=== PATIENT | female | born 2000 | race Caucasian/White ===

== ENCOUNTER 2023-04-17 08:05 | Emergency (ER) | payer BC, SELFPAY ==
--- NOTE | ~2023-04-17 | US_ITS ---
EXAMINATION: US PELVIS CLINICAL INFORMATION: Pain, right greater than left. COMPARISON: None available. TECHNIQUE: Ultrasound of the pelvis is performed using both transabdominal and transvaginal transducers along with Doppler. Transvaginal imaging is performed due to inadequate visualization transabdominally. FINDINGS: Uterus: Anteverted and mildly retroflexed measuring approximately 7.3 x 4.1 x 4.3 cm. The endometrium demonstrates homogeneous echotexture and measures up to 1.2 cm at the level the fundus. Mild anechoic fluid within the endometrial canal at the level the mid to inferior body without surrounding abnormality. The cervix is closed measuring approximately 1.5 cm in length. Mild to moderate pelvic free fluid. Right ovary measures 2.2 x 1.8 x 2.3 cm. Volume 4.8 mL. Small follicles. Duplex Doppler showed no abnormal vascular flow. Left ovary measures 4.2 x 3.8 x 3.6 cm. Volume 3.0 mL. Complex cystic lesion measuring approximately 3.3 x 3.2 x 3.3 cm. Color Doppler showed no internal vascular flow. Duplex Doppler showed normal ovarian flow. US/US pelvic ovarian doppler IMPRESSION: 1. No significant uterine abnormality. Mild anechoic fluid within the endometrial canal is nonspecific, but demonstrates benign features. 2. Complex left ovarian cyst demonstrates overall benign features and is likely physiologic. Mild to moderate pelvic free fluid is likely physiologic as well. If these findings persist or enlarge, short-term repeat pelvic ultrasound can be performed as clinically indicated to assess for change, but recommendation is within 3 months.
--- NOTE | ~2023-04-17 | US_ITS ---
EXAMINATION: US PELVIS CLINICAL INFORMATION: Pain, right greater than left. COMPARISON: None available. TECHNIQUE: Ultrasound of the pelvis is performed using both transabdominal and transvaginal transducers along with Doppler. Transvaginal imaging is performed due to inadequate visualization transabdominally. FINDINGS: Uterus: Anteverted and mildly retroflexed measuring approximately 7.3 x 4.1 x 4.3 cm. The endometrium demonstrates homogeneous echotexture and measures up to 1.2 cm at the level the fundus. Mild anechoic fluid within the endometrial canal at the level the mid to inferior body without surrounding abnormality. The cervix is closed measuring approximately 1.5 cm in length. Mild to moderate pelvic free fluid. Right ovary measures 2.2 x 1.8 x 2.3 cm. Volume 4.8 mL. Small follicles. Duplex Doppler showed no abnormal vascular flow. Left ovary measures 4.2 x 3.8 x 3.6 cm. Volume 3.0 mL. Complex cystic lesion measuring approximately 3.3 x 3.2 x 3.3 cm. Color Doppler showed no internal vascular flow. Duplex Doppler showed normal ovarian flow. US/US pelvic and transvaginal IMPRESSION: 1. No significant uterine abnormality. Mild anechoic fluid within the endometrial canal is nonspecific, but demonstrates benign features. 2. Complex left ovarian cyst demonstrates overall benign features and is likely physiologic. Mild to moderate pelvic free fluid is likely physiologic as well. If these findings persist or enlarge, short-term repeat pelvic ultrasound can be performed as clinically indicated to assess for change, but recommendation is within 3 months.
[2023-04-17 08:19] VITALS: BP 115/57; PULSE 68; RESP 18; TEMP 37.1; O2SAT 99; BMI 22.9
[2023-04-17 08:41] VITALS: BP 108/54; PULSE 65; RESP 16; TEMP 37; O2SAT 99
--- NOTE | 2023-04-17 08:49 | PC.NURSE ---
assumed care of this pt at 0830. pt is a&o x4, pleasant, calm, and cooperative. pt reports RLQ pain that started about a week and a half ago. per pt, pain initially radiated across whole lower abdomen and lower back but radiation has since subsided and is not only in the RLQ and a 4/10 pain that worsens with stretching and a full bladder. pt also reports urinary frequency and urgency. pt has been to urgent care 2x and was told to come to ER for ultrasound for possibility of ovarian cysts. pt mother at bedside. pt is resting quietly on stretcher, in no apparent distress. rr even/unlabored. vss. wctm
--- NOTE | 2023-04-17 09:02 | ED.FEMALEGU ---
HPI - Female Genitourinary General Chief complaint: Urogenital-Female Stated complaint: quest cyst Time Seen by Provider: 04/17/23 08:54 Source: patient and family Mode of arrival: ambulatory Limitations: no limitations History of Present Illness HPI Narrative: 23-year-old female with no medical history presents to the ER for evaluation of pelvic pain for last week and a half. She states she has been to the urgent care 2 times this week for the pain. She states it is worse on the right lower pelvic area. The pain comes and goes. She has been tested for UTIs and STIs and was negative. She is concerned about an ovarian cyst. She denies any nausea, vomiting, diarrhea and is moving her bowels normally. She has increased urinary frequency but no hematuria, urgency, dysuria. No vaginal bleeding or vaginal discharge. She recently came off of oral contraceptive pills 8 or 9 months ago. She denies chance of . She has not seen her OBGYN in over a year. MD elicited complaint: pelvic pain Onset (ago): week(s) (1.5) Location of symptoms: pelvis Severity: moderate Female Urogenital Radiation: Non-Radiating Quality of pain: sharp Consistency: intermittent Vaginal discharge: none Vaginal bleeding: none Urinary symptoms: Frequency Exacerbating factors: movement Relieving factors: none Associated symptoms: denies other symptoms Treatment prior to arrival: none Sexual activity: No Patient : No Possible : at home test negative Related Data Allergies Allergy/AdvReac Type Severity Reaction Status Date / Time No Known Allergies Allergy Verified 04/17/23 08:19 Review of Systems Review of Systems: Yes all other systems are reviewed and are negative PMFSH Social History Social History Smoked in Last 30 Days: No Use of substances other than those prescribed or required for medical reasons: No Advance Directives: No Advance Directives Information Provided: Yes Physical Exam Vital Signs: Vital Signs: Last Vital Signs Temp 98.6 F 04/17/23 08:41 Pulse 65 04/17/23 08:41 Resp 16 04/17/23 08:41 BP 108/54 L 04/17/23 08:41 Pulse Ox 99 04/17/23 08:41 O2 Del Method Room Air 04/17/23 08:41 BMI result Body Mass Index 22.9 Appearance: Alert. Oriented X3. No acute distress. Head: normocephalic, atraumatic. Eyes: Pupils equal, round and reactive to light. ENT: Pharynx normal. No tonsillar swelling or exudate. Neck: Normal inspection. Neck supple. CVS: Normal heart rate and rhythm. Pulses normal. Respiratory: No respiratory distress. Breath sounds normal. Abdomen: Soft with mild suprapubic tenderness, no rebound or guarding. No right lower quadrant tenderness. Normal active +BS x4. Pelvic deferred Skin: Skin warm and dry. Normal skin color. Normal skin turgor. No rashes. Extremities: No lower extremity edema. No joint swelling. Neuro/psych: Oriented X 3. Grossly normal, nonfocal CN II-XII intact. Normal speech and cognition. Medical Decision Making Medical Decision Making [facility] Narrative: 23-year-old otherwise healthy female presents to the ER for evaluation of pelvic pain for last 1 and half weeks. She states it is worse on the right. Pain is lower than expected on exam for appendicitis. Urinalysis was performed and was negative. Not . She was recently negative for STIs. She has no vaginal discharge. Doubt PID. Pelvic ultrasound today shows a benign-appearing 3 cm ovarian cyst on the left side. Pain likely referred from the cyst to the right side. No evidence of torsion. Pain is minimal at this time. We discussed the results of the ultrasound and management. She will follow-up with her OBGYN and start on NSAIDs. She is stable for discharge home with outpatient follow-up. Patient agrees with plan all questions were answered. Differential Diagnosis Differential Diagnoses: The differential diagnosis associated with the presentation includes Ovarian cyst, ovarian torsion, PID, ectopic , UTI, kidney stone, tubo-ovarian abscess Lab Data [facility] Lab Attestation statement: I reviewed the patient's lab results. Negative for infection and Labs: Lab Results 04/17/23 04/17/23 Range/Units 09:26 09:26 Urine Color Yellow Urine Appearance Clear Urine pH 6.0 (5.0-9.0) Ur Specific [place] 1.020 (1.005-1.025) Urine Protein Negative (Neg-Trace) mg/dL Urine Glucose (UA) Negative (Negative) mg/dL Urine Ketones Negative (Negative) mg/dL Urine Blood Negative (Negative) Urine Nitrite Negative (Negative) Ur Leukocyte Esterase Negative (Negative) Urine Test NEGATIVE (NEGATIVE) Independent Interpretation I performed an independent interpretation of an: Ultrasound Interpretation: Ovarian cyst seen on the left side, normal flow appreciated, agree with radiologist read Radiology Impression Discussion of test interpretation with radiology: I have reviewed the radiologist's reading. Radiologist Impression: ?US/US pelvic ovarian doppler IMPRESSION: 1.? No significant uterine abnormality. Mild anechoic fluid within the endometrial canal is nonspecific, but demonstrates benign features. 2.? Complex left ovarian cyst demonstrates overall benign features and is likely physiologic. Mild to moderate pelvic free fluid is likely physiologic as well. If these findings persist or enlarge, short-term repeat pelvic ultrasound can be performed as clinically indicated to assess for change, but recommendation is within 3 months. Independent Historian Clinical information obtained from an independent historian. History obtained from or confirmed by: Parent Prescription Management I considered prescription management with: Pain Medication Critical Care Time Critical Care Time Critical Care Time: No Discharge Plan Discharge Clinical Impression: Ovarian cyst Patient Disposition: Home, Self-Care Instructions: Ovarian Cyst (ED) Additional Instructions: Your urine test was negative. Your ultrasound showed benign cyst on the left side. Take [id number] anti-inflammatories, like Aleve, ibuprofen, Motrin as needed for pain. Follow-up with your OBGYN US/US pelvic and transvaginal IMPRESSION: 1.? No significant uterine abnormality. Mild anechoic fluid within the endometrial canal is nonspecific, but demonstrates benign features. 2.? Complex left ovarian cyst demonstrates overall benign features and is likely physiologic. Mild to moderate pelvic free fluid is likely physiologic as well. If these findings persist or enlarge, short-term repeat pelvic ultrasound can be performed as clinically indicated to assess for change, but recommendation is within 3 months. Interventions: ED Discharge Assessment Last Done: 04/17/23 10:58 Discharge Date/Time: 04/17/23 10:59
[2023-04-17 09:34] LABS: Appearance Urine Clear; Color Urine Yellow; Glucose Urine UA Negative (Negative); Leukocyte Esterase Urine Negative (Negative); Nitrite Urine Negative (Negative); Urine Blood Negative (Negative); Urine Ketones Negative (Negative); Urine Protein Negative (Neg-Trace)
[2023-04-17 09:36] LABS: UPreg QC Valid YES; Urine Pregnancy NEGATIVE (NEGATIVE)
== END 2023-04-17 10:59 | disposition home or self-care (01) ==
PROVIDERS: Physician Assistant; Emergency Provider Emergency Medicine Emergency Medical Services
DX: N83.202 Unspecified ovarian cyst, left side (principal); R10.2 Pelvic and perineal pain; R35.0 Frequency of micturition; Z79.899 Other long term (current) drug therapy
CPT/HCPCS: 76830; 76856; 81003; 81025; 93975; 99284